=== PATIENT | male | born 1965 | race Caucasian/White ===

== ENCOUNTER 2016-09-08 05:38 | Day surgery (SDC) | payer OTHER ==
[~2016-09-08] VITALS: Ht 175.3 cm; Wt 184.6 kg
[2016-09-08] VITALS (8 sets, daily range): BP systolic 113–139; BP diastolic 52–76
--- NOTE | ~2016-09-08 | EKG ---
[address] [address] ELECTROCARDIOGRAM REPORT Name: OLGA PRYOR Room #: 534-P [facility]#: [id number] Admission: 09/08/16 Attend Phys: Tony Michel MD, Discharge: Date of : 69 Report #: [id number] THIS REPORT FOR: //name// [facility] Test Date: 2016-09-08 Test Time: 10:53:17 Pat Name: OLGA PRYOR Department: Room: 150 6 Gender: M Senior Climate Advisor: DEANNA : 1965 Requested By: Tony Michel Order Number: [id number] MD: Jeromy Francisco Measurements Intervals [place] Rate: 96 P: 50 PA: 180 QRS: 57 QRSD: 100 T: 13 QT: 349 QTc: 441 Interpretive Statements Sinus rhythm No significant abnormality No previous ECG available for comparison Electronically Signed On 09-09-2016 8:15:08 CDT by Jeromy Francisco [email or web address] <ELECTRONICALLY SIGNED> By: Jeromy Francisco MD, [facility] 09/09/16 0815 1053 1053 Jeromy Francisco MD, FACC /EPI
--- NOTE | ~2016-09-08 | S ---
[facility] [place] [place] [address] SURGICAL PATH RPT PROCEDURE Name: OLGA PRYOR Room #: DEP [facility].#: [id number] Admission: 09/08/16 Date of : 69 Discharge: 09/09/16 Report #: [id number] Path Case #: [id number] PATHOLOGY REPORT COLLECTION DATE: 09/08/2016 RECEIVED DATE: 09/09/2016 SUBMITTING PHYS: Dr. Tony Michel OTHER PHYS: Dr. Brandon Horton SPECIMEN(S) RECEIVED: A.Gastric sleeve B.Incarcerated hernia contents * * * * * * * * * * * * FINAL DIAGNOSIS: A. "Gastric sleeve," partial gastrectomy: - Gastric mucosa, submucosa, and muscular wall with minimal histologic alterations. B. "Incarcerated hernia contents," hernia repair: - Vascularized fibroadipose connective tissue consistent with hernia sac showing vascular congestion and fresh hemorrhage. (CLW:; d/t: 09/10/16) PATHOLOGIST: Marly Baig M.D. REPORT ELECTRONICALLY SIGNED BY: Marly Baig M.D. DATE/TIME: 09/10/2016 21:52 * * * * * * * * * * * * GROSS PATHOLOGY: A. The specimen is received in formalin, labeled "Olga Pryor, gastric sleeve". Received is a partial gastrectomy specimen with a stapled margin of resection measuring 24.2 x 5.5 x 2.9 cm in greatest dimensions. The serosal surface is pink-sanchez, smooth and glistening in appearance. Opening the specimen reveals a light sanchez mucosa with normal architectural folds. No distinct nodules or lesions are noted grossly. The specimen is submitted representatively in cassette A1. B. Received in formalin labeled "Olga Pryor, incarcerated hernia contents," is a piece of fibroadipose tissue measuring 5.3 x 3.7 x 1.4 cm. No nodules or lesions are identified. Commercial Property Manager tissue is submitted in cassette A1 tract cassette B1. (CAA; 09/09/2016) CLINICAL HISTORY: Morbid obesity [address] [address] SURGICAL PATH RPT PROCEDURE Name: OLGA PRYOR Room #: [facility]..#: [id number] Admission: 09/08/16 Date of : 69 Discharge: 09/09/16 Report #: [id number] Path Case #: [id number] INITIAL CPT CODE(S): A; 30696 B; 41022 Professional services performed by [facility] at [address], [place] [address] Technical services performed by [facility] at [address] [place] [address], [facility] [address] [address]. [facility] [address] [place] [address] PHONE: [phone] DIRECTOR: Raj Meehan M.D. * * * END OF REPORT * * *
--- NOTE | ~2016-09-08 | O ---
[facility] [place] [address] OPERATIVE REPORT Name: OLGA PRYOR Room #: [facility]#: [id number] Admission: 09/08/16 Attend Phys: Tony Michel MD, Discharge: 09/09/16 Date of : 69 Report #: [id number] THIS REPORT FOR: //name// CC: FAM unknown Tony Michel DATE OF SERVICE: 09/08/2016 PREOPERATIVE DIAGNOSES: 1. Hypertension. 2. Obstructive sleep apnea. 3. Lumbago. 4. Chronic fatigue. 5. Morbid obesity with body mass index of 66.15. POSTOPERATIVE DIAGNOSES: 1. Hypertension. 2. Obstructive sleep apnea. 3. Lumbago. 4. Chronic fatigue. 5. Morbid obesity with body mass index of 66.15. 6. Hiatal hernia. PROCEDURES PERFORMED: 1. Laparoscopic sleeve gastrectomy. 2. Laparoscopic hiatal hernia repair. 3. A thorough esophagogastroduodenoscopy (EGD). SURGEON: Tony Michel M.D. ROOFING TILE SORTER: Brandon Horton M.D. ANESTHESIA: General endotracheal anesthesia. ESTIMATED BLOOD LOSS: Minimal (less than 10 mL). COMPLICATIONS: None appreciated. SPECIMEN: 2/3 of lateral gastric resection specimen to pathology. INDICATIONS: The patient is a 50-year-old super morbidly obese male, who has been seen for his desire for weight loss surgery, as he has had a very long history of obesity and has tried numerous weight loss attempts, all to no avail. The patient has greater than 200 pounds over his ideal body weight and has a BMI of greater than 65, all while carrying numerous comorbid conditions that are highly related to his obesity. The patient has undergone a thorough [facility] [address] [place] [address] OPERATIVE REPORT Name: ROYAOLGA Cipriano Room #: DEP [facility]..#: [id number] Admission: 09/08/16 Attend Phys: Tony Michel MD, Discharge: 09/09/16 Date of : 69 Report #: [id number] multimodal workup including evaluation by his primary care provider, as well as psychology and nutrition, who have all stated that he is cleared to undergo bariatric surgery for weight loss, as well as resolution of his comorbid conditions. As such, indication was for the above-mentioned procedures today with intraoperative findings of a hiatal hernia that required suture repair with cruroplasty. DESCRIPTION OF PROCEDURE: After explaining the risks, benefits, and alternatives of the procedure with the patient in detail in the preoperative holding area and obtaining written consent, the patient was brought to the operating room and placed supine on the operating room table. After conducting a thorough timeout procedure verifying correct patient and procedure, the patient was given general endotracheal anesthesia. Once adequate anesthesia was obtained, his SCDs were placed on the patient's bilateral lower extremities, and he was given a preoperative dose of antibiotics in line with the SCIP protocol. The patient was also given a dose of Lovenox, 1 hour prior to the operating room to prevent venous thromboembolism, and the patient's abdomen was now prepped and draped in the standard surgical sterile fashion. I began the procedure by performing a thorough EGD. The OneSchooln upper endoscope was used to intubate the oropharynx and was traversed down into the esophagus with ease. This was advanced into the stomach, where the pylorus was identified and intubated. The scope was advanced to the second portion of the duodenum, where slow and careful withdrawal of the EGD scope showed no evidence of duodenitis, gastritis, esophagitis, mass lesions, or ulcerations. A retroflexion view of the scope within the gastric lumen showed, possible finding of the small hiatal hernia. The scope was straightened out with its tip at the level of the pylorus, and the stomach was fully desufflated. This EGD scope was then taped into position at this location, and I proceeded to sterilely scrub and enter the operative field. A 5 mL of 0.5% Marcaine with epinephrine were used to anesthetize the skin in the right upper quadrant, 3 cm superior to the umbilicus, and 3 cm to the patient's right. A #15 bladed scalpel was used to create a 1.5 cm transverse skin incision at this location. A 15 mm Visiport was placed over 0-degree 5 mm laparoscope and it was introduced through this incision site. Once intraabdominal placement was verified visually, the obturator for the trocar and laparoscope were both removed, and the abdomen was insufflated to 15 mmHg using carbon dioxide gas. The laparoscope was changed to a 5-mm 30-degree laparoscope, which was reintroduced through this trocar. The entire abdomen was evaluated to ensure no injury upon entry, no pathology. I then placed three 5 mm working trocars in the patient's left abdomen. The first was placed 1 cm superior to the umbilicus and 2 cm to the patient's left. A second one was placed 5 cm lateral to that, and a third one was placed in the extreme left lateral flank. All three additional 5 mm ports were placed under direct vision after anesthetizing the skin at each location with 5 mL of 0.5% Marcaine with epinephrine, and I had created small skin nicks using #15 bladed scalpel. Laparoscope was removed and changed to 5 mm port just to the left of the patient's umbilicus, and he was placed in reverse Trendelenburg position. I [facility] [address] [place] [address] OPERATIVE REPORT Name: OLGA PRYOR Room #: DEP [facility].#: [id number] Admission: 09/08/16 Attend Phys: Tony Michel MD, Discharge: 09/09/16 Date of : 69 Report #: [id number] then anesthetized the skin in the subxiphoid location with 5 mL of 0.5% Marcaine with epinephrine, and I had created a small skin leah using #15 bladed scalpel. I utilized the obturator from the 5 mm trocar to penetrate the fascia at this level, and then maneuvered the Mohsen liver retractor through this defect, where it was positioned up under the left lobe of the liver, and it was held up against the posterior aspect of the anterior abdominal wall. This was then fixed into place using the Iron Creosoting Engineer device to stabilize it. We now had complete access to the stomach and hiatal region, and saw evidence of what appeared to be again a small hiatal hernia. I now began my dissection after identifying our landmarks. The vein of Last was identified overlying the pylorus. I measured 4 cm proximal to this location and began taking down the short gastric arteries from this location, all the way up the greater curvature of the stomach, until I arrived upon the base of the left adriana, all using Harmonic scalpel for hemostasis. Once I arrived upon the left adriana, I scored anteriorly up the left adriana and was able to elevate the stomach and take down all posterior gastric attachments, using Harmonic scalpel, again staying well away from both the posterior aspect of the stomach, and the anterior aspect of the pancreas so as to prevent injury from thermal spread. At this juncture, we saw evidence of a large amount of fat pad, contained within the hiatal hernia. This was grasped and retracted inferiorly, and I proceeded to dissect up and anterior over the esophagus. The pars flaccida was then opened with Harmonic scalpel, and I dissected up the right adriana in similar fashion, meeting with the dissection from the left side. The stomach was then elevated, and the 5 mm trocar in the left midclavicular line was then upsized under direct vision to a 12 mm trocar to accept the EndoStitch device. I then utilized four sutures of 0 Surgidac on the EndoStitch device, placing 2 sutures posterior and 2 anterior to the esophagus to perform the cruroplasty, to where it was brought together in a snug fashion, but not extremely tight to the esophagus. This performed the hiatal hernia repair. At this juncture, I turned my attention to the sleeve gastrectomy portion of the procedure. The EGD scope was positioned to run along the lesser curvature of the stomach. I utilized the [place] 60 mm stapler with a black load, and Thomas's Deepthi-Strip buttressing material placed over it. I placed it into the abdomen through the 15 mm trocar. This first firing started at the location 4 cm proximal to the pylorus and fired right along, but not extremely tight to the EGD scope, so as not to cause stricturing, especially at the incisura. A second firing of another black load again utilizing Thomas's Deepthi-Strip buttressing material was carried out following the scope, as a 34-Mauritan[place] bougie. I then utilized six additional firings of green loads, all utilizing Thomas's Deepthi-Strip buttressing material, following the scope as a bougie, all the way up to the base of the left adriana, until the stomach was completely transected. This left an excellently oriented sleeve remnant with no twisting to the sleeve whatsoever. The resection specimen was placed in the right upper quadrant, and staple line was evaluated for hemostasis. There were few areas of gentle ooze, and as such, a laparoscopic clip shell worker was used to place clips along those areas of ooze, as well as the proximal and distal aspects for hemostasis. I then utilized 14 mL of Tisseel on the [facility] [address] [place] [address] OPERATIVE REPORT Name: OLGA PRYOR Room #: DEP [facility].#: [id number] Admission: 09/08/16 Attend Phys: Tony Michel MD, Discharge: 09/09/16 Date of : 69 Report #: [id number] device to coat the entirety of the staple line with fibrin glue. Once this was dried, the abdomen was instilled with normal saline using the suction mineralogy teacher device and the EGD scope was turned on and the stomach was gently insufflated. Upon slow withdrawal of the EGD scope, we verified the staple line internally to ensure no bleeding, and we had complete hemostasis throughout. Once the stomach was gently insufflated, it was held under the normal saline in the abdomen, and we performed a leak test seeing no evidence of bubbling whatsoever, thereby indicating a negative leak test. The EGD scope was used to desufflate the stomach. It was removed via the oropharynx, passed off the field, and I proceeded to sterilely rescrub and enter the operative field once again. The normal saline in the abdomen was suctioned out, and it ran clear throughout. One final evaluation of the stomach showed no twisting to the sleeve, and had complete hemostasis. The resection specimen was grasped through the 15 mm trocar incision, was removed via the abdomen under direct vision. I then closed both the 15 mm and 12 mm fascial incisions using 0 PDS suture on the Nicholas-Kevyn needle under direct vision. These were tied down under direct vision after reducing the insufflation pressure to 8 mmHg. The Mohsen liver retractor was removed, and the liver was healthy and uninjured. All ports removed under direct vision. The abdomen was fully desufflated. 4-0 Monocryl was used in the standard subcuticular fashion for all skin incisions, and Dermabond glue was applied to all skin wounds. The fat pad that had been incarcerated within the hiatal hernia was resected and passed off the field as specimen as well. The corner of the resection specimen had been removed, was trimmed away and normal saline was passively instilled into the resection specimen, yielding 2200 mL of normal saline, passively in the resection specimen itself. At the end of the procedure, all instrument, needle, and sponge counts were correct. The patient tolerated the procedure without incident, was awakened in the operating room and transitioned to the recovery room in stable condition with no apparent complications. <ELECTRONICALLY SIGNED> By: Tony Michel MD, FACS 09/10/16 1330 1029 1259 Tony Michel MD, FACS /nt
[~2016-09-08 05:38] MED LIST: APAP500 PO; ASPIR 8181 MG PO; FISH OIL 1,0001 EAC8 PO; GLUCOSAMINE CH1 EAC7 PO; MEN'S MULTI-VI1 EACH PO; PRINIVIL10 MG PO
[2016-09-09] VITALS: BP 111/60
[2016-09-09 06:10] VITALS: BP 105/52
[2016-09-09 06:13] LABS: HEMATOCRIT 40.2 % (42.0-52.0); HEMOGLOBIN 13.5 gm/dL (14.0-18.0); MCH 29.6 pg (26.0-34.0); MCHC 33.6 g/dL (28.0-37.0); MCV 88.1 fL (80.0-100.0); RBC 4.56 mil/uL (4.50-6.00); RDW 13.9 % (10.5-14.5); WBC 13.9 thou/uL (4.0-11.0)
[2016-09-09 06:24] LABS: CALCIUM 8.8 mg/dL (8.5-10.1); CREATININE 1.1 mg/dL (0.7-1.3); POTASSIUM 4.5 mmol/L (3.5-5.1)
[2016-09-09 08:30] VITALS: BP 105/52
[2016-09-09 12:08] VITALS: BP 105/52
[2016-09-09] MEDS ORDERED: HYDROCODONE-ACE15 ML PO (12:29)
[2016-09-09] MEDS ORDERED: ZOFRAN ODT4 MG SUBLING (12:30)
== END 2016-09-09 13:00 | disposition home or self-care (01) ==
LOC: OR 05:38 → TBA 05:38 → OR 14:11 → 5S 17:17 → OR 09-09 13:00
PROVIDERS: Surgery
DX: E66.01 Morbid (severe) obesity due to excess calories (principal); Z68.44 Body mass index [BMI] 60.0-69.9, adult; I10 Essential (primary) hypertension; G47.33 Obstructive sleep apnea (adult) (pediatric); K44.0 Diaphragmatic hernia with obstruction, without gangrene; Z90.49 Acquired absence of other specified parts of digestive tract
CPT/HCPCS: 50101; 50222; 50249; 50386; 50555; 50558; 50739; 50740; 50962; 51436; 51437; 51489; 52182; 52265; 53307; 53311; 54022; 54118; 55245; 55326; 56462; 56525; 56526; 57092; 62110; 62900